=== PATIENT | female | born 1955 | race Caucasian/White ===

== ENCOUNTER 2018-09-04 04:15 | Emergency (ER) | payer MEDICAID ==
[~2018-09-04] VITALS: Ht 175.3 cm; Wt 54.5 kg
[~2018-09-04 04:15] MED LIST: ALBU18HF2 IH; AMLO5TAB PO; CARV25TA2 PO; CLON-528 PO; CLOP75TA35 PO; DOCU250C96 PO; LISI-232 PO; NORCO10T PO; NORT50CA PO; PANT40TA39 PO; POTA8TAB46 PO; ROPI3TAB PO; SIME1LIQ PO; SIMV20TA5 PO
[2018-09-04 04:53] LABS: BASOPHILS % (AUTO) 0.3 % (0-1); EOSINOPHILS # (AUTO) 0.2 X10'3 (0-0.9); EOSINOPHILS % (AUTO) 2.2 % (0-6); HEMATOCRIT 39.6 % (35.0-45.0); HEMOGLOBIN 12.9 g/dl (12.0-16.0); LYMPHOCYTES # (AUTO) 0.9 X10'3 (1.1-4.8); LYMPHOCYTES % (AUTO) 8.8 % (21-51); MEAN CORPUSCULAR HEMOGLOBIN 31.7 PG (27.0-31.0); MEAN CORPUSCULAR HGB CONC 32.7 g/dL (33.0-36.5); MEAN CORPUSCULAR VOLUME 96.9 FL (78-98); MEAN PLATELET VOLUME 7.6 FL (7.4-10.4); MONOCYTES # (AUTO) 0.3 X10'3 (0-0.9); MONOCYTES % (AUTO) 3.5 % (2-12); NEUTROPHILS # (AUTO) 8.6 X10'3 (1.8-7.7); NEUTROPHILS % (AUTO) 85.2 % (42-75); PLATELET COUNT 211 X10'3 (140-440); RED BLOOD COUNT 4.09 X10'6 (4.20-5.60); RED CELL DISTRIBUTION WIDTH 14.3 % (11.5-14.5); WHITE BLOOD COUNT 10.1 X10'3 (4.5-11.0)
[2018-09-04 05:03] LABS: PROTHROMBIN TIME 10.3 SECONDS (9.0-12.0)
[2018-09-04 05:04] LABS: PARTIAL THROMBOPLASTIN TIME 23 SECONDS (22-32)
[2018-09-04 05:13] LABS: ALANINE AMINOTRANSFERASE 8 U/L (12-78); ALBUMIN 3.5 G/DL (3.4-5.0); ALBUMIN/GLOBULIN RATIO 0.8 (1.1-1.5); ALKALINE PHOSPHATASE 82 IU/L (46-116); ANION GAP 6 (8-16); ASPARTATE AMINO TRANSFERASE 8 U/L (10-37); BILIRUBIN,TOTAL 0.6 MG/DL (0.1-1.0); BLOOD UREA NITROGEN 20 MG/DL (7-18); BUN/CREATININE RATIO 14.5 (6.6-38.0); CALCIUM 9.5 MG/DL (8.5-10.1); CHLORIDE 101 MMOL/L (99-107); CREATININE 1.38 MG/DL (0.40-0.90); GLUCOSE 163 MG/DL (70-104); POTASSIUM 3.1 MMOL/L (3.5-5.1); SODIUM 141 MMOL/L (135-145); TOTAL CARBON DIOXIDE 33.9 MMOL/L (24-32); TOTAL PROTEIN 7.8 G/DL (6.4-8.2); TROPONIN I < 0.04 NG/ML (0.0-0.05); eGFR 39 ML/MIN
[2018-09-04] MEDS ORDERED: normal saline 1000ML IV soln IVB ONE (05:25)
[2018-09-04] MEDS ORDERED: iohexol 350MG/ML 100ml bottle IV ONE (05:53)
[2018-09-04] MEDS ORDERED: labetalol 20mg/4ml (5mg/ml) syringe IV PRN (06:15)
--- NOTE | 2018-09-04 09:10 | NUR ---
upon assessment of the pt the pt began to get agitated and tachypneic then became unresponsive and heart rate started dropping. dr olson was made aware.
--- NOTE | 2018-09-04 09:15 | NUR ---
1 liter bag of ns started by pressure bag
--- NOTE | 2018-09-04 09:19 | NUR ---
50 of etomidate was administered
--- NOTE | 2018-09-04 09:20 | NUR ---
100 of rocuronium was administered
--- NOTE | 2018-09-04 09:23 | NUR ---
2 mcg of levophed administered
--- NOTE | 2018-09-04 09:25 | NUR ---
2nd liter bag of ns started with rapid infuser
[2018-09-04] MEDS ORDERED: THY60T PO (09:27)
[2018-09-04] MEDS ORDERED: VENL-190 (09:27)
[2018-09-04] MEDS ORDERED: CLOP75TA35 PO (09:27)
--- NOTE | 2018-09-04 09:35 | NUR ---
central line placed to the right external jugular
--- NOTE | 2018-09-04 09:38 | NUR ---
first unit of prbc's initiated
[2018-09-04 09:47] LABS: BASOPHILS % (AUTO) 0.1 % (0-1); EOSINOPHILS # (AUTO) 0.1 X10'3 (0-0.9); EOSINOPHILS % (AUTO) 1.3 % (0-6); LYMPHOCYTES # (AUTO) 0.9 X10'3 (1.1-4.8); LYMPHOCYTES % (AUTO) 14.8 % (21-51); MEAN CORPUSCULAR HEMOGLOBIN 31.4 PG (27.0-31.0); MEAN CORPUSCULAR HGB CONC 32.3 g/dL (33.0-36.5); MEAN CORPUSCULAR VOLUME 97.1 FL (78-98); MEAN PLATELET VOLUME 7.3 FL (7.4-10.4); MONOCYTES # (AUTO) 0.2 X10'3 (0-0.9); MONOCYTES % (AUTO) 3.3 % (2-12); NEUTROPHILS # (AUTO) 5.1 X10'3 (1.8-7.7); NEUTROPHILS % (AUTO) 80.5 % (42-75); PLATELET COUNT 114 X10'3 (140-440); RED CELL DISTRIBUTION WIDTH 14.3 % (11.5-14.5); WHITE BLOOD COUNT 6.3 X10'3 (4.5-11.0)
[2018-09-04 09:53] LABS: HEMOGLOBIN 6.6 g/dl (12.0-16.0)
[2018-09-04 09:54] LABS: HEMATOCRIT 20.4 % (35.0-45.0)
--- NOTE | 2018-09-04 10:00 | NUR ---
pt's bp was dropping chest xray performed which showed intrthoracic hemorrhaging
--- NOTE | 2018-09-04 10:01 | NUR ---
arterial line placed
--- NOTE | 2018-09-04 10:10 | NUR ---
first arterial line failed 2nd arterial line placed to the right femoral
--- NOTE | 2018-09-04 10:15 | NUR ---
second unit of prbc initiated
--- NOTE | 2018-09-04 10:20 | NUR ---
one unit ffp intitiated 4 mg of versed administered
[2018-09-04] MEDS ORDERED: esmolol/sodium cl bag 250 ML IV SCH (10:30)
--- NOTE | 2018-09-04 11:14 | NUR ---
3rd unit of prbc's given via rapid transfuser. all units given to this patient have been administered emergently through the rapid transfuser in under 2 minutes time.
[2018-09-04] MEDS ORDERED: tranexamic acid 100mg/ml inj. IV ONE (11:30)
[2018-09-04] MEDS ORDERED: midazolam 100mg in NS 100ml 100 ML IV ONE (11:30)
[2018-09-04] MEDS ORDERED: fentaNYL/PF 50MCG/1 ML 2ML syringe IV PRN (11:30)
[2018-09-04] MEDS: midazolam 2 mg/2 ml injection IV PRN ×2 (11:35→11:45)
[2018-09-04] MEDS ORDERED: NORMAL SALINE IV ONE (11:45)
[2018-09-04] MEDS ORDERED: TRANEXAMIC ACID IV ONE (11:45)
--- NOTE | 2018-09-04 11:54 | NUR ---
2nd unit of FFP initiated via rapid infuser through the patients central line
[2018-09-04 12:00] LABS: ABG BASE EXCESS -3.3 mmol/L (-2.0-3.0); ABG HCO3 21.6 mmol/L (22.0-26.0); ABG PCO2 (T) 37.8 mmHg (32.0-45.0); ABG PH (T) 7.374 (7.350-7.450); ABG PO2 (T) 327.4 mmHg (83-108); FCOHb 0.6 % (0.5-1.5); FMetHb 0.3 % (0.3-1.12); FO2Hb 98.1 % (94-100); MINUTE VOLUME 7 L/min; PEEP 5 cm H2O; RESPIRATORY RATE 14 b/min; RESPIRATORY RATE (OBSERVED) 14 b/min; TIDAL VOLUME 450 mL; TOTAL HEMOGLOBIN 10.6 G/dl (12.0-16.0)
[2018-09-04] MEDS ORDERED: etomidate 2mg/ml inj. ONE (12:00)
[2018-09-04] MEDS ORDERED: rocuronium 10mg/ml inj IV ONE (12:00)
[2018-09-04] MEDS ORDERED: LIDOcaine 2% (20 mg/ml) 5ml cardiac syringe ONE (12:00)
[2018-09-04] MEDS ORDERED: sod chloride 0.9% 10ml flush syringe IV ONE (12:00)
--- NOTE | 2018-09-04 12:24 | NUR ---
a bag of platelets intitiated
--- NOTE | 2018-09-04 12:28 | NUR ---
versed increased to 3mg/hr
--- NOTE | 2018-09-04 12:28 | NUR ---
esmolol increased to 10mcg/kg/min
--- NOTE | 2018-09-04 12:35 | NUR ---
txa started at this time
--- NOTE | 2018-09-04 12:38 | NUR ---
esmolol stopped at this time
[2018-09-04 12:39] VITALS: BP 131/85
--- NOTE | 2018-09-04 12:40 | NUR ---
reach transfer team arrives
[2018-09-04] MEDS ORDERED: FENTANYL 1000MCG/NS 100 ML BAG /PF IV PRN (12:50)
--- NOTE | 2018-09-04 13:25 | NUR ---
VITALS WERE VERY UNSTABLE, HAD A HARD TIME MAINTAINING B/P BETWEEN 120&90 SYSTOLIC. HER MAP WOULD DROP BELOW 60 SO WE WOULD START FLUIDS, RESTART LEVOPHED AND THEN HER PRESSURE WOULD GO UP, SO WE WOULD STOP THE LEVOPHED AND THE FLUIDS AND RESTART THE ESMOLOL AND THEN THE B/P WOULD DROP TOO LOW. DIFFICULT TO SHOW THIS LEVEL OF INSTABILITY IN THE CHART. F/C STARTED PER MD. RESTRAINTS APPLIED BUT NOT USED, VERSED AND FENTANYL USED ORDERED TO MAINTAIN LIGHT OF SEDATION POSSILBE.
[2018-09-04] MEDS ORDERED: MIDAZolam 5mg/ml 2ml vial IV ONE (13:40)
--- NOTE | 2018-09-04 13:55 | NUR ---
patient left hospital headed to [place] with Flight Crew
[2018-09-04] MEDS ORDERED: NORepinephrine bitartrate 8 MG in NS 250 ML BAG (32 mcg/ml) IV ONE (14:00)
== END 2018-09-04 13:55 | disposition short-term general hospital (02) ==
LOC: ER 04:15
DX: I71.1 Thoracic aortic aneurysm, ruptured (principal); I25.10 Atherosclerotic heart disease of native coronary artery without angina pectoris; I10 Essential (primary) hypertension; I25.2 Old myocardial infarction; F17.200 Nicotine dependence, unspecified, uncomplicated; Z95.5 Presence of coronary angioplasty implant and graft; Z98.890 Other specified postprocedural states; Z79.899 Other long term (current) drug therapy
CPT/HCPCS: 31500; 36415; 36430; 36556; 36600; 71045; 71275; 74175; 80053; 82803; 84484; 85018; 85025; 85610; 85730; 86885; 86900; 86901; 86920; 93005; 94760; 96365; 96375; 99291; 99292; J2001; J2250; J3010; P9016; P9035; P9059; Q9967; 94002; J3490; J7030